=== PATIENT | female | born 1990 | race Caucasian/White ===

== ENCOUNTER → 2020-08-08 | Outpatient (CLI) | payer OTHER ==
[2020-08-09 15:12] LABS: HPV 16 Negative (Negative); HPV 18 Negative (Negative); HPV OTHER HR TYPES Negative (Negative)
== END ==
LOC: LAB SHORT 10:00
PROVIDERS: Registered Nurse Community Health
DX: Z12.4 Encounter for screening for malignant neoplasm of cervix (principal)
CPT/HCPCS: 87624; G0123

== ENCOUNTER → 2021-12-25 | Outpatient (CLI) | payer OTHER | END | disposition home or self-care (01) | LOC: LAB 17:30 → LAB SHORT 17:30 | DX: R82.90 Unspecified abnormal findings in urine (principal) | CPT/HCPCS: 87077; 87086; 87186 ==

== ENCOUNTER 2022-01-31 05:05 | Inpatient (IN) | payer OTHER ==
[~2022-01-31] VITALS: Ht 170.2 cm; Wt 109.0 kg
[2022-01-31] MEDS ORDERED: PRENATAL TABLE1 EAC2 (05:29)
[2022-01-31 05:54] LABS: BASOPHILS ABSOLUTE AUTO 0.05 K/mm3 (0.00-0.23); BASOPHILS PERCENT AUTO 1 % (0-2); EOSINOPHILS ABSOLUTE AUTO 0.18 K/mm3 (0.00-0.68); EOSINOPHILS PERCENT AUTO 2 % (0-6); Hemoglobin 13.5 g/dL (11.5-16.0); IMMATURE GRAN ABSOLUTE AUTO 0.05 K/mm3 (0.00-0.10); IMMATURE GRAN PERCENT AUTO 1 % (0-1); LYMPHOCYTES ABSOLUTE AUTO 2.55 K/mm3 (0.84-5.20); LYMPHOCYTES PERCENT AUTO 24 % (21-46); MONOCYTES ABSOLUTE AUTO 0.61 K/mm3 (0.16-1.47); MONOCYTES PERCENT AUTO 6 % (4-13); Mean Corpuscular HGB 33.1 pg (26.0-34.0); Mean Corpuscular HGB Conc 34.6 g/dL (31.5-36.5); Mean Corpuscular Volume 96 fL (80-100); Mean Platelet Volume 10.6 fL (9.1-12.4); NEUTROPHILS ABSOLUTE AUTO 7.37 K/mm3 (1.96-9.15); NEUTROPHILS PERCENT AUTO 68 % (41-73); Platelet Count 256 K/mm3 (150-400); RDW Standard Deviation 41.8 fL (35.1-46.3); Red Blood Cell Count 4.08 M/mm3 (3.80-5.20); White Blood Cell Count 10.81 K/mm3 (4.00-11.30)
--- NOTE | 2022-01-31 08:20 | NUR ---
NB WAS BORN VIA , ARM WAS OUT FIRST, PUSHED BACK, NB WAS TRANSVERSE, THEN BREECH. LONG , NB CAME OUT ATTEMPTING TO CRY, CPAP WAS IMMEDIATLY APPLIED AND WAS CONT ON IN THE NSY. INITAL HR WAS 70'S THEN WITH CPAP UP TO 90 AT 5 MIN. SP02 WAS 70 IN OR. CALLED FOR ACCOUNTS PAYABLE OR RECEIVABLE CLERKJACKIE FERRARO FOR ASSISTANCE. JACKIE DIAZ IN TO HELP. VIT K GIVEN, TURNING UP 02 BASED OFF NB BREATHING SP02, NOTED TO DECREASE WHEN NB HAS APNEIC SPELLS. RT CONT CPAP UNTIL BUBBLE CPAP WAS APPLIED. CALLED BY ACCOUNTS PAYABLE OR RECEIVABLE CLERK, [address]. ON HER WAY IN. BOTH PARENTS (UBALDO & NADIA) AT SIDE DURING ENTIRE TIME IN THE [facility].
[2022-01-31 08:33] LABS: PCO2 Cord - Arterial 66.3 mmHg (40-50); PO2 Cord - Arterial > 14 mmHg (16-20); pH Cord - Arterial 7.19 (7.28-7.35)
[2022-01-31 08:34] LABS: PCO2 Cord - Venous 43.4 mmHg (40-50); PO2 Cord - Venous 25.4 mmHg (28-32); pH Umbilical Cord - Venous 7.33 (7.26-7.35)
--- NOTE | 2022-01-31 08:36 | NUR ---
01/31/22 0836 Larisa Ho [id number] BREECH DELIVERY OF VIABLE MALE, TO WARMER WITH RN AND RT, WEIGHT 3900GMS 8 LBS 10 OZ, HEAD 14.25IN CHEST 13.5 INCHES LENGTH 21 IN, BABY TAKEN TO [facility]
[2022-02-01 06:02] LABS: BASOPHILS ABSOLUTE AUTO 0.04 K/mm3 (0.00-0.23); BASOPHILS PERCENT AUTO 0 % (0-2); EOSINOPHILS ABSOLUTE AUTO 0.21 K/mm3 (0.00-0.68); EOSINOPHILS PERCENT AUTO 2 % (0-6); Hematocrit 34.3 % (33.0-51.0); Hemoglobin 11.6 g/dL (11.5-16.0); IMMATURE GRAN ABSOLUTE AUTO 0.04 K/mm3 (0.00-0.10); IMMATURE GRAN PERCENT AUTO 0 % (0-1); LYMPHOCYTES ABSOLUTE AUTO 2.37 K/mm3 (0.84-5.20); LYMPHOCYTES PERCENT AUTO 23 % (21-46); MONOCYTES ABSOLUTE AUTO 0.61 K/mm3 (0.16-1.47); MONOCYTES PERCENT AUTO 6 % (4-13); Mean Corpuscular HGB 32.8 pg (26.0-34.0); Mean Corpuscular HGB Conc 33.8 g/dL (31.5-36.5); Mean Corpuscular Volume 97 fL (80-100); Mean Platelet Volume 10.4 fL (9.1-12.4); NEUTROPHILS ABSOLUTE AUTO 7.23 K/mm3 (1.96-9.15); NEUTROPHILS PERCENT AUTO 69 % (41-73); Platelet Count 222 K/mm3 (150-400); RDW Coefficient Variation 12.3 % (11.7-14.2); RDW Standard Deviation 43.5 fL (35.1-46.3); Red Blood Cell Count 3.54 M/mm3 (3.80-5.20)
[2022-02-01] MEDS ORDERED: Percocet 5-3251 EACH PO (16:05)
[2022-02-01] MEDS ORDERED: IBUP800 PO (16:05)
--- NOTE | 2022-02-01 20:28 | NUR ---
Pt was sitting in bed. Requested pain meds. Notified nurse. All needs were met.
--- NOTE | 2022-02-02 09:17 | NUR ---
PT SITTING ON SIDE OF BED, ASKED MEDICAID BILLER FOR PAIN MEDICATION AND TO HAVE BREASTMILK TAKEN TO NURSERY. INFORMATION RELAYED TO NURSE FOR PAIN MEDICATION. BREASTMILK PLACED INTO SEALED CONTAINER AND PUT INTO REFRIGERATOR IN NURSERY.
--- NOTE | 2022-02-02 12:20 | NUR ---
DC HOME, ENCOURAGED TO CALL WITH QUESTIONS. HAS PHONECALL PPFU APPT SCHEDULED FOR FRIDAY WITH ANNE-MARIE, PT DIDNT WANT TO COME IN, SHE HAS HER APPOINTMENT ALREADY SCHEDULED WITH DR YUN.
--- NOTE | 2022-02-04 15:17 | NUR ---
PPFU. APPOINTMENT DONE BY PHONE. PT STATES HER MILK IS IN AND SHE IS PUMPING FOR THE PARENTS OF NB, TALKED W/ PT ABOUT FREQUENCY AND SETTINGS OF PUMPING. PT STATES HER VAGINAL BLEEDING IS DECREASING. PT DENIES HEADACHE, BLURRED VISION, OR DIZZINESS. PT DENEIS NUMBNESS, TINGLING AND SWELLING IN HER EXTREMETIES. PT DENIES HOT, TENDER OR RED SPOTS TO THE BACK OF HER LEGS, KNEES, AND CALFS. PT DENIES S/SX OF INFECTION TO INCISION, TALKED W/ PT ABOUT LEAVING STERI STRIPS INPLACE UNTIL SEEN BY PROVIDER. PT STATES SHE IS TAKING A STOOL SOFTNER, PNV, IBUPROFEN, AND OXYCODONE. PT STATES SHE HAS F/U APPOINTMENT W/ PROVIDER. PT DENIES ANY FURTHER QUESTIONS OR CONCERNS.
== END 2022-02-02 12:20 | disposition home or self-care (01) | DRG 788 ==
LOC: BC 05:05
PROVIDERS: ADMIT Obstetrics & Gynecology
PROC: 10D00Z1 Extraction of Products of Conception, Low, Open Approach (ICD-10-PCS; principal; 2022-01-31 07:30)
DX: O34.211 Maternal care for low transverse scar from previous cesarean delivery (principal); O32.1XX0 Maternal care for breech presentation, not applicable or unspecified; Z37.0 Single live birth; Z67.10 Type A blood, Rh positive; O34.03 Maternal care for unspecified congenital malformation of uterus, third trimester; Q51.810 Arcuate uterus; Z3A.39 39 weeks gestation of pregnancy
CPT/HCPCS: 36415; 82803; 85025; 86850; 86900; 86901; A9270; J0694; J1885; J2370; J2405; J2704; J2765; J3010; J7120

== ENCOUNTER 2022-02-07 18:42 | Emergency (ER) | payer OTHER ==
[~2022-02-07] VITALS: Ht 170.2 cm; Wt 100.7 kg
[~2022-02-07 18:42] MED LIST: IBUP800 PO; PRENATAL TABLE1 EAC2; Percocet 5-3251 EACH PO
[2022-02-07 19:49] LABS: BASOPHILS ABSOLUTE AUTO 0.05 K/mm3 (0.00-0.23); BASOPHILS PERCENT AUTO 0 % (0-2); EOSINOPHILS ABSOLUTE AUTO 0.06 K/mm3 (0.00-0.68); EOSINOPHILS PERCENT AUTO 0 % (0-6); Hematocrit 39.7 % (33.0-51.0); Hemoglobin 13.8 g/dL (11.5-16.0); IMMATURE GRAN ABSOLUTE AUTO 0.05 K/mm3 (0.00-0.10); IMMATURE GRAN PERCENT AUTO 0 % (0-1); LYMPHOCYTES ABSOLUTE AUTO 1.62 K/mm3 (0.84-5.20); LYMPHOCYTES PERCENT AUTO 10 % (21-46); MONOCYTES ABSOLUTE AUTO 0.61 K/mm3 (0.16-1.47); MONOCYTES PERCENT AUTO 4 % (4-13); Mean Corpuscular HGB Conc 34.8 g/dL (31.5-36.5); Mean Corpuscular Volume 95 fL (80-100); NEUTROPHILS ABSOLUTE AUTO 13.52 K/mm3 (1.96-9.15); NEUTROPHILS PERCENT AUTO 85 % (41-73); Platelet Count 405 K/mm3 (150-400); RDW Coefficient Variation 11.9 % (11.7-14.2); RDW Standard Deviation 41.5 fL (35.1-46.3); Red Blood Cell Count 4.18 M/mm3 (3.80-5.20); White Blood Cell Count 15.91 K/mm3 (4.00-11.30)
[2022-02-07 20:07] LABS: Albumin, Blood 2.9 g/dL (3.4-5.0); Albumin/Globulin Ratio 0.7 (0.8-1.8); Bilirubin, Total 0.6 mg/dL (0.1-1.0); Bun/Creatinine Ratio 27.6 (12.0-20.0); Calcium, Blood 9.2 mg/dL (8.5-10.1); Creatinine, Blood 0.58 mg/dL (0.40-1.00); Globulin, Blood 4.2 g/dL (2.2-4.0); Total Protein, Blood 7.1 g/dL (6.4-8.2)
[2022-02-07 22:41] LABS: Source, Urine Clean Catch
[2022-02-07 22:44] LABS: Bilirubin, Urine Neg (Neg); Blood, Urine 4+ (Neg); Glucose Qualitative, Urine Neg (Neg); Ketones, Urine 2+ (Neg); Leukocyte Esterase, Urine 1+ (Neg); Nitrite, Urine Pos (Neg); Protein, Urine Neg (Neg); Urobilinogen, Urine NORM (Normal)
[2022-02-07 22:50] LABS: Appearance, Urine Hazy (Clear); Bacteria Many /hpf; Color, Urine Yellow (P-Yellow); Red Blood Cells, Urine 0-2 /hpf (0-2); Squamous Epithelial Cells Many /hpf (Few)
[2022-02-07] MEDS ORDERED: AMOCLA875 PO (23:09)
== END 2022-02-07 23:58 | disposition home or self-care (01) ==
LOC: ER 18:42
PROVIDERS: Physician Assistant
DX: O90.89 Other complications of the puerperium, not elsewhere classified (principal); R10.84 Generalized abdominal pain
CPT/HCPCS: 36415; 74177; 80053; 81001; 83690; 85025; 87077; 87086; 87186; A9270; Q9967

== ENCOUNTER → 2023-10-13 | Outpatient (CLI) | payer OTHER ==
[~2023-10-13] MED LIST changes: +AMOCLA875 PO
[2023-10-13 11:31] LABS: BASOPHILS ABSOLUTE AUTO 0.04 K/mm3 (0.00-0.23); BASOPHILS PERCENT AUTO 0 % (0-2); EOSINOPHILS PERCENT AUTO 0 % (0-6); Hematocrit 37.2 % (33.0-51.0); Hemoglobin 13.2 g/dL (11.5-16.0); IMMATURE GRAN ABSOLUTE AUTO 0.12 K/mm3 (0.00-0.10); IMMATURE GRAN PERCENT AUTO 1 % (0-1); LYMPHOCYTES ABSOLUTE AUTO 0.99 K/mm3 (0.84-5.20); LYMPHOCYTES PERCENT AUTO 5 % (21-46); MONOCYTES ABSOLUTE AUTO 1.61 K/mm3 (0.16-1.47); MONOCYTES PERCENT AUTO 8 % (4-13); Mean Corpuscular HGB 33.3 pg (26.0-34.0); Mean Corpuscular HGB Conc 35.5 g/dL (31.5-36.5); Mean Corpuscular Volume 94 fL (80-100); Mean Platelet Volume 9.5 fL (9.1-12.4); NEUTROPHILS ABSOLUTE AUTO 18.14 K/mm3 (1.96-9.15); NEUTROPHILS PERCENT AUTO 87 % (41-73); Platelet Count 260 K/mm3 (150-400); RDW Coefficient Variation 12.2 % (11.7-14.2); Red Blood Cell Count 3.96 M/mm3 (3.80-5.20)
[2023-10-13 11:39] LABS: Albumin, Blood 2.9 g/dL (3.4-5.0); Albumin/Globulin Ratio 0.6 (0.8-1.8); Bilirubin, Total 1.1 mg/dL (0.1-1.0); Bun/Creatinine Ratio 10.6 (12.0-20.0); Creatinine, Blood 0.94 mg/dL (0.40-1.00); Potassium, Blood 3.5 mmol/L (3.5-5.5); Total Protein, Blood 7.9 g/dL (6.4-8.2)
== END | disposition home or self-care (01) ==
LOC: LAB 11:25 → LAB SHORT 11:25
PROVIDERS: Family Medicine
DX: R50.9 Fever, unspecified (principal)
CPT/HCPCS: 80053; 85025

== ENCOUNTER → 2023-10-13 | Outpatient (CLI) | payer OTHER | LOC: LAB 10:56 → LAB SHORT 10:56 | DX: N12 Tubulo-interstitial nephritis, not specified as acute or chronic (principal) | CPT/HCPCS: 87077; 87086; 87186 ==

== ENCOUNTER 2024-05-06 10:21 | Inpatient (IN) | payer OTHER ==
[~2024-05-06] VITALS: Ht 167.6 cm; Wt 109.5 kg
[2024-05-06] VITALS (14 sets, daily range): BP systolic 87–102; BP diastolic 51–74
[2024-05-06] MEDS ORDERED: Lactated Ringer's 1,000 ML IV SCH ×3 (10:45→13:30)
[2024-05-06] MEDS ORDERED: Citric Acid/Sodium Citrate 30 ML BTL PO SCH (10:45)
[2024-05-06] MEDS ORDERED: Metoclopramide HCl 5MG / ML 2ML Vial IV SCH (10:45)
[2024-05-06] MEDS ORDERED: CeFAZolin Sodium 2,000 MG in NS 100 ML IV SCH (10:45)
[2024-05-06] MEDS ORDERED: Cefazolin 2000MG/Dextrose,ISO 50 ML IV PRN (10:50)
[2024-05-06 11:28] LABS: BASOPHILS ABSOLUTE AUTO 0.04 K/mm3 (0.00-0.23); BASOPHILS PERCENT AUTO 0 % (0-2); EOSINOPHILS ABSOLUTE AUTO 0.08 K/mm3 (0.00-0.68); EOSINOPHILS PERCENT AUTO 1 % (0-6); Hematocrit 35.9 % (33.0-51.0); Hemoglobin 12.5 g/dL (11.5-16.0); IMMATURE GRAN ABSOLUTE AUTO 0.05 K/mm3 (0.00-0.10); IMMATURE GRAN PERCENT AUTO 1 % (0-1); LYMPHOCYTES ABSOLUTE AUTO 2.06 K/mm3 (0.84-5.20); LYMPHOCYTES PERCENT AUTO 21 % (21-46); MONOCYTES ABSOLUTE AUTO 0.49 K/mm3 (0.16-1.47); MONOCYTES PERCENT AUTO 5 % (4-13); Mean Corpuscular HGB 33.5 pg (26.0-34.0); Mean Corpuscular HGB Conc 34.8 g/dL (31.5-36.5); Mean Corpuscular Volume 96 fL (80-100); Mean Platelet Volume 9.9 fL (9.1-12.4); NEUTROPHILS PERCENT AUTO 73 % (41-73); Platelet Count 237 K/mm3 (150-400); RDW Coefficient Variation 13.5 % (11.7-14.2); RDW Standard Deviation 48.2 fL (35.1-46.3); Red Blood Cell Count 3.73 M/mm3 (3.80-5.20); White Blood Cell Count 9.92 K/mm3 (4.00-11.30)
[2024-05-06 11:51] LABS: Albumin, Blood 2.6 g/dL (3.4-5.0); Albumin/Globulin Ratio 0.6 (0.8-1.8); Bilirubin, Total 0.6 mg/dL (0.1-1.0); Bun/Creatinine Ratio 20.5 (12.0-20.0); Calcium, Blood 8.9 mg/dL (8.5-10.1); Creatinine, Blood 0.54 mg/dL (0.40-1.00); Globulin, Blood 4.4 g/dL (2.2-4.0); Potassium, Blood 4.5 mmol/L (3.5-5.5)
[2024-05-06] MEDS ORDERED: FentaNYL Citrate 50 MCG/ML 2 ML Injection ONE (12:11)
[2024-05-06] MEDS ORDERED: Ketorolac Tromethamine 30mg Vial ONE (12:37)
[2024-05-06] MEDS ORDERED: Oxytocin 10 Unit / ML Vial ONE ×2 (12:37→13:13)
[2024-05-06] MEDS ORDERED: Dexamethasone Sod Phos 10 MG/ML 1ML VIAL ONE (12:37)
[2024-05-06] MEDS ORDERED: Ondansetron HCl 2 MG / ML 2ML Vial ONE (12:37)
[2024-05-06] MEDS ORDERED: Phenylephrine HCl 100 MCG/ML-NS 10MLSYR (1MG/10ML) ONE (12:37)
--- NOTE | 2024-05-06 13:06 | NUR ---
05/06/24 1306 Jodi Nieves VIABLE MALE 1242; WEIGHT 3470 HEAD 14 CHEST 14 LENGTH - 20; CORD BLOOD SENT WITH April HUFF RN. APGARS 12/28.
[2024-05-06] MEDS ORDERED: Acetaminophen 500 MG Tab PO PRN (13:25)
[2024-05-06] MEDS ORDERED: OXYTOCIN/RINGER'S LACTATE 500 ML IV SCH (13:25)
[2024-05-06] MEDS ORDERED: Lanolin Cream TOP PRN (13:30)
[2024-05-06] MEDS ORDERED: Ketorolac Tromethamine 30mg Vial IV SCH (14:00)
[2024-05-06] MEDS ORDERED: OxyCODONE HCL 5 MG TAB PO PRN ×2 (15:10→16:05)
[2024-05-06] MEDS ORDERED: HYDROcodone 5-APAP 325 TAB PO PRN ×2 (15:10→19:30)
[2024-05-06] MEDS ORDERED: Simethicone 80 MG Chew PO PRN (15:20)
[2024-05-06] MEDS ORDERED: Docusate Sodium 100 MG Cap PO PRN (15:20)
[2024-05-06] MEDS ORDERED: Ketorolac Tromethamine 30mg Vial IV PRN (19:00)
[2024-05-07] VITALS (7 sets, daily range): BP systolic 93–109; BP diastolic 52–72
[2024-05-07 06:29] LABS: BASOPHILS ABSOLUTE AUTO 0.03 K/mm3 (0.00-0.23); BASOPHILS PERCENT AUTO 0 % (0-2); EOSINOPHILS ABSOLUTE AUTO 0.02 K/mm3 (0.00-0.68); EOSINOPHILS PERCENT AUTO 0 % (0-6); Hematocrit 37.3 % (33.0-51.0); IMMATURE GRAN ABSOLUTE AUTO 0.16 K/mm3 (0.00-0.10); IMMATURE GRAN PERCENT AUTO 1 % (0-1); LYMPHOCYTES ABSOLUTE AUTO 2.45 K/mm3 (0.84-5.20); LYMPHOCYTES PERCENT AUTO 14 % (21-46); MONOCYTES ABSOLUTE AUTO 0.87 K/mm3 (0.16-1.47); MONOCYTES PERCENT AUTO 5 % (4-13); Mean Corpuscular HGB 33.2 pg (26.0-34.0); Mean Corpuscular HGB Conc 34.9 g/dL (31.5-36.5); Mean Corpuscular Volume 95 fL (80-100); Mean Platelet Volume 9.6 fL (9.1-12.4); NEUTROPHILS ABSOLUTE AUTO 13.54 K/mm3 (1.96-9.15); NEUTROPHILS PERCENT AUTO 79 % (41-73); Platelet Count 296 K/mm3 (150-400); RDW Coefficient Variation 13.3 % (11.7-14.2); RDW Standard Deviation 46.6 fL (35.1-46.3); Red Blood Cell Count 3.92 M/mm3 (3.80-5.20); White Blood Cell Count 17.07 K/mm3 (4.00-11.30)
[2024-05-07] MEDS ORDERED: Ibuprofen 400 MG Tab PO SCH (08:00)
[2024-05-08 04:36] VITALS: BP 96/62
[2024-05-08 07:28] VITALS: BP 110/70
--- NOTE | 2024-05-08 08:19 | NUR ---
dc instructions given. verbalize understanding. questions answered. will follow up friday for ppfu and has appt with dr rivera for postop appt within 2 weeks.
== END 2024-05-08 11:15 | disposition home or self-care (01) | DRG 788 ==
LOC: BC 10:31
PROVIDERS: ADMIT Obstetrics & Gynecology
PROC: 10D00Z1 Extraction of Products of Conception, Low, Open Approach (ICD-10-PCS; principal; 2024-05-06 12:00)
DX: O34.211 Maternal care for low transverse scar from previous cesarean delivery (principal); O32.1XX0 Maternal care for breech presentation, not applicable or unspecified; Z37.0 Single live birth; Z3A.39 39 weeks gestation of pregnancy
CPT/HCPCS: 36415; 80053; 85025; 86850; 86900; 86901; 86923; A9270; C1751; J1100; J1885; J2371; J2405; J2590; J2765; J3010